=== PATIENT | female | born 1945 | race Native Hawaiian/Other Pacific Islander ===

== ENCOUNTER 2017-08-10 10:00 | Outpatient (CLI) | payer OTHER ==
[~2017-08-10 10:00] MED LIST: BUSPIRONE10 MG PO; DIPH25CA90 PO; GABA300C2 PO; HYDROXYZ HCL10 MG PO; LEVETIRACETA500 MG PO; LORCET 5-325 MG1 TAB PO; NORTRIPTYLIN50 MG PO; PAXIL40 MG PO; REQUIP1 MG PO
== END 2017-08-10 23:36 | disposition home or self-care (01) ==
LOC: MAMMO 10:00
DX: Z12.31 Encounter for screening mammogram for malignant neoplasm of breast (principal)

== ENCOUNTER 2022-06-30 14:34 | Outpatient (CLI) | payer OTHER | END 2022-06-30 19:22 | disposition home or self-care (01) | LOC: MAMMO 14:34 | PROVIDERS: ATTEND Family Medicine | DX: Z12.31 Encounter for screening mammogram for malignant neoplasm of breast (principal) ==

== ENCOUNTER 2022-11-15 14:47 | Outpatient (CLI) | payer OTHER | END 2022-11-15 19:38 | disposition home or self-care (01) | LOC: MRI 14:47 | PROVIDERS: ATTEND Neurological Surgery | DX: M47.22 Other spondylosis with radiculopathy, cervical region (principal); M40.204 Unspecified kyphosis, thoracic region; S22.060S Wedge compression fracture of T7-T8 vertebra, sequela; S22.070S Wedge compression fracture of T9-T10 vertebra, sequela; Y92.89 Other specified places as the place of occurrence of the external cause ==

== ENCOUNTER 2022-11-20 15:13 | Emergency (ER) | payer OTHER ==
[~2022-11-20] VITALS: Ht 157.5 cm; Wt 50.8 kg
[2022-11-20 15:26] VITALS: BP 144/64; TEMP 99.3
== END 2022-11-20 16:47 | disposition home or self-care (01) ==
LOC: ED 15:13
DX: S52.592A Other fractures of lower end of left radius, initial encounter for closed fracture (principal); S52.692A Other fracture of lower end of left ulna, initial encounter for closed fracture; L03.114 Cellulitis of left upper limb; X58.XXXA Exposure to other specified factors, initial encounter
CPT/HCPCS: 99283